=== PATIENT | female | born 1990 | race Caucasian/White ===

== ENCOUNTER 2023-01-05 01:25 | Inpatient (IN) | payer OTHER ==
[2023-01-05] VITALS (670 sets, daily range): BP systolic 93–116; BP diastolic 54–69; PULSE 93–105; TEMP 98–98.5; O2SAT 95–100
[~2023-01-05] VITALS: Ht 167.6 cm; Wt 78.4 kg
[2023-01-05 02:01] LABS: BASO # 0.1 K/mm3 (0.0-0.2); BASO % 0.5 % (0.0-2.0); GRAN # 17.2 K/mm3 (1.4-6.5); GRAN % 86.7 % (42.2-75.2); HEMATOCRIT 41.4 % (37.0-47.0); HEMOGLOBIN 13.9 g/dl (12.5-16.0); LYMPH % 9.9 % (20.0-51.0); MEAN CELL VOLUME 88 fl (80.0-100.0); MEAN CORPUSCULAR HEMOGLOBIN 29 pg (27-31); MEAN CORPUSCULAR HGB CONC 34 g/dl (33.0-37.0); MEAN PLATELET VOLUME 12.1 fl (7.4-10.4); MONO # 0.5 K/mm3 (0.1-0.6); MONO % 2.3 % (1.7-9.3); PLATELET COUNT 288 K/mm3 (130-400); RED BLOOD COUNT 4.72 M/mm3 (4.10-5.30); REDCELL DISTRIBUTION WIDTH-CV 12.2 % (11.5-14.5)
[2023-01-05] MEDS ORDERED: SYNTHROID0.088 MG/T PO (02:29)
[2023-01-05] MEDS ORDERED: HUMALOG100 U/ML SQ (02:29)
[2023-01-05 02:41] LABS: ACETONE,SERUM MODERATE
[2023-01-05 02:46] LABS: ALANINE AMINOTRANSFERASE 14 U/L (0-55); ALKALINE PHOSPHATASE 77 U/L (40-150); ANION GAP 20 mmol/L (7-16); AST,SGOT 13 U/L (5-34); BLOOD UREA NITROGEN 17 mg/dL (7-19); CALCIUM 8.6 mg/dL (8.4-10.2); CHLORIDE 105 mmol/L (98-107); CREATININE, serum 1.06 mg/dL (0.57-1.11); SODIUM 133 mmol/L (136-145); TOTAL PROTEIN 7.2 gm/dL (6.2-8.1)
[2023-01-05 02:50] LABS: CARBON DIOXIDE 8 mmol/L (22-29); GLUCOSE 510 mg/dL (70-99); LIPASE < 4 U/L (8-78); POTASSIUM 5.8 mmol/L (3.5-4.5)
[2023-01-05 03:44] LABS: MAGNESIUM 2.2 mg/dL (1.6-2.6); PHOSPHOROUS 4.9 mg/dL (2.3-4.7)
[2023-01-05 05:29] LABS: CALCIUM 8.2 mg/dL (8.4-10.2); CREATININE, serum 0.9 mg/dL (0.57-1.11); POTASSIUM 5.4 mmol/L (3.5-4.5)
--- NOTE | 2023-01-05 07:12 | NUR ---
D5/ INSULIN INFUSING, PATIENT IS COMFORTABLE AT THIS TIME, VSS.
[2023-01-05 08:05] LABS: CALCIUM 8.2 mg/dL (8.4-10.2); CREATININE, serum 0.87 mg/dL (0.57-1.11); POTASSIUM 5.2 mmol/L (3.5-4.5)
[2023-01-05 09:27] LABS: CALCIUM 7.9 mg/dL (8.4-10.2); CREATININE, serum 0.86 mg/dL (0.57-1.11); POTASSIUM 4.4 mmol/L (3.5-4.5)
--- NOTE | 2023-01-05 10:31 | NUR ---
SW met with pt to complete intake. Pt reports living in [place]. Pt is to Don @ [phone], but they are seperated at this time. SW reports independent with ADLS, but does have a insulin pump. PCP is [facility] and gets medications from [facility]. Pt repors no DPOA-HC and not interested at this time. No other needs at this time.
[2023-01-05 12:16] LABS: CALCIUM 8.2 mg/dL (8.4-10.2); CREATININE, serum 0.82 mg/dL (0.57-1.11); POTASSIUM 4.1 mmol/L (3.5-4.5)
[2023-01-05 13:38] LABS: CALCIUM 8.1 mg/dL (8.4-10.2); CREATININE, serum 0.82 mg/dL (0.57-1.11); POTASSIUM 3.9 mmol/L (3.5-4.5)
--- NOTE | 2023-01-05 14:56 | NUR ---
1345 BEDSIDE REPORT OBTAINED FROM JULIETA RUBIN.
[2023-01-05 15:36] LABS: CALCIUM 7.9 mg/dL (8.4-10.2); CREATININE, serum 0.83 mg/dL (0.57-1.11)
[2023-01-05 17:43] LABS: CALCIUM 7.9 mg/dL (8.4-10.2); CREATININE, serum 0.8 mg/dL (0.57-1.11); POTASSIUM 3.7 mmol/L (3.5-4.5)
--- NOTE | 2023-01-05 18:41 | NUR ---
1813 BLOOD GLUCOSE CHECK 70, PT HAD JUST FINISHED DINNER AND ASYMTOMATIC. PER PROTOCOL INSULIN DRIP PLACED ON HOLD, 8.OZ OF OJ GIVEN TO PT AND RECHECK IN 15 MIN. UNTIL >110 1829 CHECK= 80. PT CONTINUES TO BE ASYMTOMATIC WILL CONTINUE TO FOLLOW PROTOCAL WITH Q15 MIN CHECKS UNTIL >110
--- NOTE | 2023-01-05 18:50 | NUR ---
1845 BLOOD GLUCOSE 139, PER PROTOCOL CONTINUE INSULIN ON HOLD RECHECK IN 1 HOUR. IF CONTINUES TO BE >110 RESTART INSULIN AT 50% MOST RECENT RATE WHICH WAS 7U. WOULD NEED TO BE RESTARTED AT 3.5U. WILL PASS ON TO ONCOMING NURSE IN BEDSIDE REPORT.
--- NOTE | 2023-01-05 19:15 | NUR ---
Received report from SCOTTIE Christy.
--- NOTE | 2023-01-05 19:50 | NUR ---
Patient resting quietly in bed watching TV. Denies pain or discomfort. Vitals within normal limits. Patient ambulating independently to toilet with steady gait. Continues to receive insulin drip, see IV drip titrations.
[2023-01-05 19:54] LABS: CALCIUM 7.9 mg/dL (8.4-10.2); CREATININE, serum 0.87 mg/dL (0.57-1.11); POTASSIUM 4.3 mmol/L (3.5-4.5)
[2023-01-05 21:49] LABS: CALCIUM 7.8 mg/dL (8.4-10.2); CREATININE, serum 0.84 mg/dL (0.57-1.11); POTASSIUM 3.9 mmol/L (3.5-4.5)
[2023-01-05 23:45] LABS: CALCIUM 7.8 mg/dL (8.4-10.2); CREATININE, serum 0.76 mg/dL (0.57-1.11); POTASSIUM 3.6 mmol/L (3.5-4.5)
[2023-01-06] VITALS (199 sets, daily range): BP systolic 93–102; BP diastolic 61–72; PULSE 82–84; TEMP 36.8; O2SAT 96–100
--- NOTE | 2023-01-06 00:35 | NUR ---
Notified Katie of patient's BG ranging consistently between 130-180 over last four hours. Patient's GAP is closed. CO2 continues to improve. Per Katie, to continue insulin drip throughout the night. BMPs to be obtained every four hours with next draw occuring at 0400.
[2023-01-06 04:53] LABS: BASO % 0.4 % (0.0-2.0); EOS # 0.1 K/mm3 (0.0-0.7); GRAN # 6.4 K/mm3 (1.4-6.5); GRAN % 64.8 % (42.2-75.2); LYMPH # 2.6 K/mm3 (1.2-3.4); LYMPH % 26.7 % (20.0-51.0); MEAN CELL VOLUME 84 fl (80.0-100.0); MEAN CORPUSCULAR HGB CONC 35 g/dl (33.0-37.0); MEAN PLATELET VOLUME 11.1 fl (7.4-10.4); MONO # 0.7 K/mm3 (0.1-0.6); MONO % 6.9 % (1.7-9.3); RED BLOOD COUNT 3.65 M/mm3 (4.10-5.30); REDCELL DISTRIBUTION WIDTH-CV 12.3 % (11.5-14.5)
[2023-01-06 05:02] LABS: HEMATOCRIT 30.6 % (37.0-47.0); MEAN CORPUSCULAR HEMOGLOBIN 29 pg (27-31)
[2023-01-06 05:03] LABS: PLATELET COUNT 184 K/mm3 (130-400)
[2023-01-06 05:04] LABS: CALCIUM 7.8 mg/dL (8.4-10.2); CREATININE, serum 0.69 mg/dL (0.57-1.11); MAGNESIUM 1.7 mg/dL (1.6-2.6); POTASSIUM 3.9 mmol/L (3.5-4.5)
[2023-01-06 05:05] LABS: HEMOGLOBIN 10.6 g/dl (12.5-16.0)
[2023-01-06 09:06] LABS: CREATININE, serum 0.66 mg/dL (0.57-1.11); POTASSIUM 3.9 mmol/L (3.5-4.5)
--- NOTE | 2023-01-06 11:03 | NUR ---
Initial visit; Patient thanked Clinical Research Director for looking in on her and offering God's blessings. Letitia declined Spiritual Care.
--- NOTE | 2023-01-06 11:46 | NUR ---
PT STABLE ON ROUNDS. BLOOD SUGARS STABLE. NO CHANGES TO INSULIN/ GLUCOSE DRIPS. INSULIN PUMP STARTED BY PT PRIOR TO DISCHARGE. PT VERBALIZED UNDERSTANDING OF NECESSITY TO HAVE BACK UP SUPPLIES. PT STATES SHE FORGOT THE BACK UP PUMP ON HER TABLE. SHE JUST FORGOT TO PUT IT IN HER BAG. NO SIGN OF DISTRESS AT THIS TIME. DISCHARGED TO HOME.
--- NOTE | 2023-01-06 13:11 | NUR ---
RECORDIST reviewed pt's clinical record before rounds this morning and noted she was admitted yesterday for N/V secondary to DKA. RECORDIST met with pt @ the bedside to complete initial intake today. Pt reports she presented to the ED b/c she had not taken her insulin for 23 hrs due to a failed insulin pump. Pt is independent in her ADL's/IADL's and she lives with her , Don Alejo in [place]. She states her primary care provider is Dr. Laurent Marie, ph# [phone], and she fills her prescriptions @ [facility]. When asked if she had an advance directive-HCPOA, pt stated she did not. She declined education/information on the HCPOA/Living Will when offered. Pt stated she did not wish to implement one at this time. She has been medically clear for discharge and will drive herself home. No other concerns noted.
== END 2023-01-06 11:26 | disposition home or self-care (01) | DRG 639 ==
LOC: COL.ER 01:25 → ICU 02:55
PROVIDERS: Emergency Medicine; Hospitalist; Internal Medicine; Nurse Practitioner Family; ADMIT Internal Medicine
DX: E10.10 Type 1 diabetes mellitus with ketoacidosis without coma (principal); E03.9 Hypothyroidism, unspecified; D72.829 Elevated white blood cell count, unspecified
CPT/HCPCS: J1650; J1815; J2405; J2550; J3480; J7030